=== PATIENT | female | born 1990 | race African-American/Black ===

== ENCOUNTER 2020-10-01 12:33 | Emergency (ER) | payer SELFPAY ==
[2020-10-01] MEDS ORDERED: LIDOCAINE 1% W/EPI 1:100,000 MDV 20 ML VIAL ONE (15:28)
--- NOTE | 2020-10-01 15:40 | ER ---
Nurse's Notes [facility] Name: Noa Larios Age: 30 yrs Sex: Female : 1990 Arrival Date: 10/01/2020 Time: 12:37 Bed 6 Private MD: Diagnosis: Laceration without foreign body of right hand Presentation: 10/01 13:01 Chief complaint: Patient states: Lac on R thumb 30 minutes RNP. Bleeding controlled. ca1 Coronavirus screen: Client denies travel out of the [place] in the last 14 days. At this time, the client does not indicate any symptoms associated with coronavirus-19. Ebola Screen: Patient negative for fever greater than or equal to 101.5 degrees Fahrenheit, and additional compatible Ebola Virus Disease symptoms Patient denies exposure to infectious person. Patient denies travel to an Ebola-affected area in the 21 days before illness onset. No symptoms or risks identified at this time. Initial Sepsis Screen: Does the patient meet any 2 criteria? No. Patient's initial sepsis screen is negative. Does the patient have a suspected source of infection? No. Patient's initial sepsis screen is negative. Risk Assessment: Do you want to hurt yourself or someone else? Patient reports no desire to harm self or others. Onset of symptoms was October 01, 2020. 13:01 Method Of Arrival: Ambulatory ca1 13:01 Acuity: YULIANA 4 ca1 Triage Assessment: 15:32 Injury Description: Laceration sustained to right thumb. 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 Last tetanus immunization: unknown, Flu vaccine is not up to date. - Social history:: Smoking status: Patient/guardian denies using tobacco, the patient reports quitting approximately 2 years ago. - Family history:: not pertinent. Screenin:32 Abuse screen: Denies threats or abuse. Nutritional screening: No deficits noted. jd3 Tuberculosis screening: No symptoms or risk factors identified. Fall Risk Ambulatory Aid- None/Bed Rest/Nurse Assist (0 pts). Gait- Normal/Bed Rest/Wheelchair (0 pts) Mental Status- Oriented to own ability (0 pts). Total Rogers Fall Scale indicates No Risk (0-24 pts). Assessment: 15:15 General: Appears in no apparent distress. comfortable, Behavior is calm, cooperative, jd3 appropriate for age. Pain: Complains of pain in right thumb Quality of pain is described as aching. Neuro: Level of Consciousness is awake, alert, obeys commands, Oriented to person, place, time, situation. Cardiovascular: Denies chest pain, Capillary refill < 3 seconds Patient's skin is warm and dry. Respiratory: Airway is patent Respiratory effort is even, unlabored, Respiratory pattern is regular, symmetrical, Denies cough, shortness of breath. GI: No signs and/or symptoms were reported involving the gastrointestinal system. : No signs and/or symptoms were reported regarding the genitourinary system. EENT: No signs and/or symptoms were reported regarding the EENT system. Derm: Skin is intact, Skin is dry, Skin is normal, Skin temperature is warm Wound noted right thumb Wound is laceration that is bout 1.5 cm in length. no bleeding noted. Musculoskeletal: Circulation, motion, and sensation intact. Range of motion: intact in all extremities. 15:45 Reassessment: Patient appears in no apparent distress at this time. Patient and/or jd3 family updated on plan of care and expected duration. Pain level reassessed. Patient is alert, oriented x 3, equal unlabored respirations, skin warm/dry/pink. Patient states feeling better. Vital Signs: 13:01 Pulse 81; Resp 16 S; Temp 97.3(TE); Pulse Ox 99% on R/A; Weight 108.86 kg (R); Height 5 ca1 ft. 8 in. (172.72 cm) (R); Pain 3/10; 13:01 BP 144 / 110; ca1 15:40 Pulse 80; Resp 16 S; Pulse Ox 99% on R/A; jd3 13:01 Body Mass Index 36.49 (108.86 kg, 172.72 cm) ca1 ED Course: 12:37 Patient arrived in ED. bp1 13:03 Triage completed. ca1 13:04 Arm band placed on right wrist. ca1 14:56 Erasmo Walters MD is Attending Physician. malou 15:04 Naranjo, Julio César, RN is Primary Nurse. jd3 15:31 Assist provider with laceration repair on right thumb that was 2.5 cm. or less using jd3 sutures. Set up tray. Performed by Erasmo Walters MD Dressed with 4X4s, Patient tolerated well. Patient did not have IV access during this emergency room visit. 15:32 Patient has correct armband on for positive identification. Bed in low position. Call jd3 light in reach. Side rails up X 1. Pulse ox on. NIBP on. 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 Exp: jd3 10/30/2021. Lot #: [id number]. } Route: IM; Site: left deltoid; 15:46 Follow up: Response: No adverse reaction jd3 15:28 Drug: Lidocaine-Epinephrine -1%: (1:100,000) 1 vials Volume: 20 ml; Route: Infiltration;jd3 15:46 Follow up: Response: No adverse reaction jd3 15:46 Not Given (Patient Refused): Neosporin (bexeulpf-gxnhfhdqth-ussiufcmc) Ointment 1 jd3 application Topical once Outcome: 15:40 Discharge ordered by . malou 15:46 Discharged to home ambulatory, with family. jd3 15:46 Condition: stable 15:46 Discharge instructions given to patient, Instructed on discharge instructions, follow up and referral plans. medication usage, Demonstrated understanding of instructions, follow-up care, medications, Prescriptions given X 2. 15:47 Patient left the ED. jd3 Signatures: Erasmo Walters MD MD cha Davies, Jonathon, RN RN jd3 Acob, Cheryl, RN RN [facility] Nadira Barker [facility] Corrections: (The following items were deleted from the chart) 15:48 15:47 Pulse 80bpm; Resp 16bpm; Spontaneous; Pulse Ox 99% RA; jd3 jd3
--- NOTE | 2020-10-01 15:41 | EDPHYS ---
Physician Documentation [facility] Name: Noa Larios Age: 30 yrs Sex: Female : 1990 Arrival Date: 10/01/2020 Time: 12:37 Bed 6 Private MD: ED Physician Erasmo Walters HPI: 10/01 15:35 This 30 yrs old Black Female presents to ER via Ambulatory with complaints of Hand malou Injury, Laceration To Hand. 15:35 The patient or guardian reports injury. The complaints affect the CMC of right thumb. malou Context: The problem was sustained at home, resulted from gun , hammer back. Onset: The symptoms/episode began/occurred just prior to arrival. Modifying factors: The symptoms are alleviated by nothing. Associated signs and symptoms: The patient has no apparent associated signs or symptoms. Severity of symptoms: At their worst the symptoms were mild, in the emergency department the symptoms are unchanged. The patient has not experienced similar symptoms in the past. 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 Last tetanus immunization: unknown, Flu vaccine is not up to date. - Social history:: Smoking status: Patient/guardian denies using tobacco, the patient reports quitting approximately 2 years ago. - Family history:: not pertinent. ROS: 15:35 Constitutional: Negative for fever, chills, and weight loss, Eyes: Negative for injury, malou pain, redness, and discharge, ENT: Negative for injury, pain, and discharge, Neck: Negative for injury, pain, and swelling, Cardiovascular: Negative for chest pain, palpitations, and edema, Respiratory: Negative for shortness of breath, cough, wheezing, and pleuritic chest pain, Abdomen/GI: Negative for abdominal pain, nausea, vomiting, diarrhea, and constipation, Back: Negative for injury and pain, : Negative for injury, bleeding, discharge, and swelling, Skin: Negative for injury, rash, and discoloration, Neuro: Negative for headache, weakness, numbness, tingling, and seizure, Psych: Negative for depression, anxiety, suicide ideation, homicidal ideation, and hallucinations, Allergy/Immunology: Negative for hives, rash, and allergies, Endocrine: Negative for neck swelling, polydipsia, polyuria, polyphagia, and marked weight changes, Hematologic/Lymphatic: Negative for swollen nodes, abnormal bleeding, and unusual bruising. 15:35 MS/extremity: Positive for laceration, pain, of the right hand and CMC of right thumb. Exam: 15:35 Constitutional: This is a well developed, well nourished patient who is awake, alert, malou and in no acute distress. Head/Face: Normocephalic, atraumatic. Eyes: Pupils equal round and reactive to light, extra-ocular motions intact. Lids and lashes normal. Conjunctiva and sclera are non-icteric and not injected. Cornea within normal limits. Periorbital areas with no swelling, redness, or edema. ENT: Nares patent. No nasal discharge, no septal abnormalities noted. Tympanic membranes are normal and external auditory canals are clear. Oropharynx with no redness, swelling, or masses, exudates, or evidence of obstruction, uvula midline. Mucous membranes moist. Neck: Trachea midline, no thyromegaly or masses palpated, and no cervical lymphadenopathy. Supple, full range of motion without nuchal rigidity, or vertebral point tenderness. No Meningismus. Chest/axilla: Normal chest wall appearance and motion. Nontender with no deformity. No lesions are appreciated. Cardiovascular: Regular rate and rhythm with a normal S1 and S2. No gallops, murmurs, or rubs. Normal PMI, no JVD. No pulse deficits. Respiratory: Lungs have equal breath sounds bilaterally, clear to auscultation and percussion. No rales, rhonchi or wheezes noted. No increased work of breathing, no retractions or nasal flaring. Abdomen/GI: Soft, non-tender, with normal bowel sounds. No distension or tympany. No guarding or rebound. No evidence of tenderness throughout. Back: No spinal tenderness. No costovertebral tenderness. Full range of motion. Skin: Warm, dry with normal turgor. Normal color with no rashes, no lesions, and no evidence of cellulitis. Neuro: Awake and alert, GCS 15, oriented to person, place, time, and situation. Cranial nerves II-XII grossly intact. Motor strength 5/5 in all extremities. Sensory grossly intact. Cerebellar exam normal. Normal gait. Psych: Awake, alert, with orientation to person, place and time. Behavior, mood, and affect are within normal limits. 15:35 Musculoskeletal/extremity: Extremities: grossly normal except: noted in the dorsal aspect of proximal phalanx of right thumb and palmar aspect of proximal phalanx of right thumb: laceration, ROM: intact in all extremities, full active range of motion, full passive range of motion, Circulation is intact in all extremities. Sensation intact. Compartment Syndrome exam of affected extremity: is normal. Joints: All joints appear normal with full range of motion. Weight bearing: able to fully bear weight, DVT Exam: no swelling, negative Homans' sign noted on exam, no appreciated bluish discoloration, no erythema, no increased warmth, pain, tenderness. Vital Signs: 13:01 Pulse 81; Resp 16 S; Temp 97.3(TE); Pulse Ox 99% on R/A; Weight 108.86 kg (R); Height 5 ca1 ft. 8 in. (172.72 cm) (R); Pain 3/10; 13:01 BP 144 / 110; ca1 15:40 Pulse 80; Resp 16 S; Pulse Ox 99% on R/A; jd3 13:01 Body Mass Index 36.49 (108.86 kg, 172.72 cm) ca1 MDM: 14:56 Patient medically screened. malou 15:38 Differential diagnosis: closed fracture, contusion. Data reviewed: vital signs, nurses malou notes. 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 Counseling: I had a detailed discussion with the patient and/or guardian regarding: the historical points, exam findings, and any diagnostic results supporting the discharge/admit diagnosis, lab results, the need for outpatient follow up, for definitive care, a family practitioner. 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 Exp: jd3 10/30/2021. Lot #: [id number]. } Route: IM; Site: left deltoid; 15:46 Follow up: Response: No adverse reaction jd3 15:28 Drug: Lidocaine-Epinephrine -1%: (1:100,000) 1 vials Volume: 20 ml; Route: Infiltration;jd3 15:46 Follow up: Response: No adverse reaction jd3 15:46 Not Given (Patient Refused): Neosporin (vgweozhs-ldzdrxtvwd-lfonnudju) Ointment 1 jd3 application Topical once Disposition: 10/01/20 15:40 Discharged to Home. Impression: Laceration without foreign body of right hand. - Condition is Stable. - Discharge Instructions: Laceration Care, Adult, Laceration Care, Adult, [id number]. - Prescriptions for Ibuprofen 600 mg Oral Tablet - take 1 tablet by ORAL route every 6 hours As needed take with food; 20 tablet. Keflex 500 mg Oral Capsule - take 1 capsule by ORAL route every 6 hours for 7 days; 28 capsule. - Medication Reconciliation Form, Thank You Letter, Antibiotic Education, Prescription Opioid Use form. - Follow up: Private Physician; When: 1 week; Reason: Recheck today's complaints, Continuance of care, Staple/Suture removal, Re-evaluation by your physician. - Problem is new. - Symptoms have improved. Signatures: Erasmo Walters MD MD cha Davies, Jonathon, RN RN j Fabiola Cuevas RN RN ca1 Corrections: (The following items were deleted from the chart) 15:47 15:40 10/01/2020 15:40 Discharged to Home. Impression: Laceration without foreign body jd3 of right hand. Condition is Stable. Forms are Medication Reconciliation Form, Thank You Letter, Antibiotic Education, Prescription Opioid Use. Follow up: Private Physician; When: 1 week; Reason: Recheck today's complaints, Continuance of care, Staple/Suture removal, Re-evaluation by your physician. Problem is new. Symptoms have improved. malou
[2020-10-01] MEDS ORDERED: TETANUS & DIPHTHERIA TOX,ADULT 0.5 ML VIAL ONE (15:42)
[2020-10-01 17:24] VITALS: BP 144/110; TEMP 97.3; O2SAT 99
== END 2020-10-01 15:47 | disposition home or self-care (01) ==
LOC: ER 12:33
PROC: 0JQJ0ZZ Repair Right Hand Subcutaneous Tissue and Fascia, Open Approach (ICD-10-PCS; principal; 2020-10-01)
DX: S61.411A Laceration without foreign body of right hand, initial encounter (principal); W26.8XXA Contact with other sharp object(s), not elsewhere classified, initial encounter; Y92.009 Unspecified place in unspecified non-institutional (private) residence as the place of occurrence of the external cause; Z23 Encounter for immunization
CPT/HCPCS: 90471; 90714; 99284